=== PATIENT | female | born 1960 | race Caucasian/White ===

== ENCOUNTER 2019-12-24 08:37 | Day surgery (SDC) | payer BC ==
[~2019-12-24 08:37] MED LIST: CEFAZOLIN 2 Gram 2 GM/50 ML BAG IVPB ONE; CELECOXIB 100 MG CAPSULE PO ONE; FAMOTIDINE 20MG TABLET PO ONE; METOCLOPRAMIDE 10 MG TABLET PO ONE; SCOPOLAMINE 1 PATCH TDSY TD ONE; VANCOMYCIN 1GM/200ML PREMIX 1 GM/200 ML PIGGYBACK IVPB ONE
[2019-12-24] MEDS ORDERED: ROPIVACAINE HCL (NAROPIN) /PF 5MG/ML 20ML VIAL IV ONE (08:38)
[2019-12-24] MEDS ORDERED: GLYCOPYRROLATE 0.2 MG/ML ML IV ONE (08:38)
[2019-12-24] MEDS ORDERED: LIDOCAINE 2% MDV (20MG/ML) 20ML VIAL IV ONE (08:38)
[2019-12-24] MEDS ORDERED: DEXAMETHASONE 4 MG/ML 1ML VIAL IVP ONE (08:38)
[2019-12-24] MEDS ORDERED: PROPOFOL 10 MG/ML VIAL IV ONE (08:38)
[2019-12-24] MEDS ORDERED: MIDAZOLAM HCL 2MG/2ML VIAL IV ONE (08:38)
[2019-12-24] MEDS ORDERED: RINGERS SOLUTION,LACTATED 1,000 ML IV ONE ×2 (09:47→12:04)
[2019-12-24 09:53] LABS: ABO GROUP O; ANTIBODY SCREEN NEGATIVE (NEGATIVE); RH TYPE NEGATIVE
[2019-12-24] MEDS ORDERED: BUPIVACAINE 0.5% W/EPI MPF 30 ML VIAL IU ONE (12:03)
[2019-12-24] MEDS ORDERED: TRANEXAMIC ACID 1,000 MG/10 ML ML IV ONE (12:04)
[2019-12-24] MEDS ORDERED: TRANEXAMIC ACID 1,000 MG/10 ML ML IU ONE (12:04)
[2019-12-24] MEDS ORDERED: NALOXONE 0.4 MG/1 ML VIAL IVP PRN (13:10)
[2019-12-24] MEDS ORDERED: ONDANSETRON HCL IV 4 MG/2 ML VIAL IVP PRN (13:10)
[2019-12-24] MEDS ORDERED: HYDROCODONE/APAP 10/325 TABLET PO PRN (13:10)
[2019-12-24] MEDS ORDERED: HYDROMORPHONE HCL 2 MG/ML VIAL IM PRN (13:10)
[2019-12-24] MEDS ORDERED: ACETAMINOPHEN W/ CODEINE 300MG/60MG TABLET PO PRN ×2 (13:10)
[2019-12-24] MEDS ORDERED: KETOROLAC 30 MG/ML VIAL IVP PRN (13:10)
[2019-12-24] MEDS ORDERED: ACETAMINOPHEN 325 MG TAB PO PRN (13:10)
[2019-12-24] MEDS ORDERED: MAGNESIUM HYDROXIDE 30 ML UDC PO PRN (13:10)
[2019-12-24] MEDS ORDERED: BISACODYL 10 MG SUPP RC PRN (13:10)
[2019-12-24] MEDS ORDERED: AL HYDROX/MAG HYDROX 30ML UD PO PRN (13:10)
[2019-12-24] MEDS ORDERED: TRAMADOL HCL 50 MG TABLET PO PRN (13:10)
[2019-12-24] MEDS ORDERED: ZOLPIDEM TARTRATE 5 MG TABLET PO PRN (13:10)
[2019-12-24] MEDS ORDERED: DIPHENHYDRAMINE HCL 25 MG CAPSULE PO PRN (13:10)
[2019-12-24] MEDS: HYDROCODONE/APAP 10/325 TABLET PO PRN ×2 (15:42→21:39)
--- NOTE | 2019-12-24 16:31 | Rehab Evaluation ---
Patient Information - Patient Information Diagnosis: DJD L knee Ordered Treatment: PT Evaluate and Treat Status: Initial Evaluation Surgery: Yes (L TKA) Date of Surgery: 12/24/19 Past Medical/Surgical Hx: PAST MEDICAL/SURGICAL HISTORY Surgery to Affected Area? No Recent Surgery? 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 Hx Seizures Yes: 1998 WITH BRAIN TUMOR PMH - GI Hx Gastrointestinal Disorders No PMH - Hx Genitourinary Disorders No Comment: S/P HYST PMH - Endocrine Hx Endocrine Disorders No PMH - Musculoskeletal Hx Musculoskeletal Disorders Yes Hx Arthritis Yes: KNEES Hx Osteoporosis Yes: OSTEOPENIA PMH - Psych Hx Psychiatric Problems No PMH - Hematology/Oncology Hx Hematology/Oncology Yes Disorders Hx Anemia Yes: TAKES IRON DAILY Hx Cancer Yes: BRAIN, SKIN, BREAST Hx Chemotherapy Yes Hx Radiation Therapy Yes Premorbid Status: Detail (The patient was independent with all mobility prior to surgery.) Social History: Detail (The patient lives with spouse in a one story house with one step at the enterance and no handrails. The bathroom is equipped with a walk in shower, shower bench, hand held shower head, standard height toilet. No grab bars are present in the bathroom. The patient has a front wheeled walker.) Precautions: [place], Fall, Other (WBAT on the L LE.) - Time With Patient Total Time Spent With Patient (Min): 25 Treatment Procedures: Detail (Initial evaluation, low complexity, transfer training.) Subjective Information - Subjective Information Per Patient (The patient had complaints of L knee pain level 5 using 0-10 pain scale.) Objective Data - Mental Status Patient Orientation: Oriented x3 - Visual Perception Appears within normal limits for therapeutic activities - ROM Not within normal limits (The patient's L knee AROM is limited s/p surgery. All other AROM is WNL.) - Strength/Tone Other (The patient's LE strength was not tested s/p surgery however was functional.) - Bed Mobility Independent (The patient required minimal/moderate with Upper body for supine to sit and minimal PA moving L LE. The patient was independent with sit to supine and scooting to edge of bed.) - Transfers Independent (The patient was independent with stand to sit and required minimal PA of 1 with sit to stand from bed. The patient transferred to and from commode with use of standard walker with CG of 1 for safety.) - Balance Balance Sitting: Good Balance Standing: Fair (The patient required support of walker to stand.) - Gait Detail (The patient was unable to bear weight on L LE without L knee buckling when standing with std. walker. The patient is to walk with nursing staff once effects of surgical block have diminished.) Therapy Assessment - Therapy Assessment Detail (The patient required assistance with bed mobility and transfers and was unable to ambulate due to effects of surgical block. The patient is to walk to bathroom this pm with nursing staff. The patient will be seen tomorrow for 1-2 PT sessions for transfer and gait training and instruction in TKA HEP.) Problem List - Problem List Physical Therapy Problem List: Detail (Decreased L knee AROM and L LE strength.) Goals - Goals Physical Therapy Goals: 1) The patient will be independent with bed mobility . 2) The patient will be independent with sit to and from stand transfer. 3) The patient will ambulate with assistive device household distances WBAT on L LE independently. 4) The patient will ambulate on stairs with supervision for safety using proper technique. 5) The patient will be independent with TKA HEP. Plan - Plan Physical Therapy Plan: PT 1-2 visits for bed mobility, transfers, gait training on levels and stairs and instruction in TKA HEP.
--- NOTE | 2019-12-24 16:39 | Rehab Evaluation ---
Patient Information - Patient Information Diagnosis: DJD L knee Ordered Treatment: OT Evaluate and Treat Status: Initial Evaluation Surgery: Yes (L TKA) Date of Surgery: 12/24/19 Past Medical/Surgical Hx: PAST MEDICAL/SURGICAL HISTORY Surgery to Affected Area? No Recent Surgery? 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 Hx Seizures Yes: 1998 WITH BRAIN TUMOR PMH - GI Hx Gastrointestinal Disorders No PMH - Hx Genitourinary Disorders No Comment: S/P HYST PMH - Endocrine Hx Endocrine Disorders No PMH - Musculoskeletal Hx Musculoskeletal Disorders Yes Hx Arthritis Yes: KNEES Hx Osteoporosis Yes: OSTEOPENIA PMH - Psych Hx Psychiatric Problems No PMH - Hematology/Oncology Hx Hematology/Oncology Yes Disorders Hx Anemia Yes: TAKES IRON DAILY Hx Cancer Yes: BRAIN, SKIN, BREAST Hx Chemotherapy Yes Hx Radiation Therapy Yes Premorbid Status: Detail (The patient was independent with all ADLs and functional mobility prior to surgery.) Social History: Detail (The patient lives with spouse in a one story house with one step at the entrance and no handrails. The bathroom is equipped with a walk in shower, shower bench, hand held shower head, and a standard height toilet. No grab bars are present in the bathroom, however the Pt uses a sturdy vanity for support when needed in standing. The patient has a standard walker without wheels and a lift chair.) Precautions: [place], Fall, Other (WBAT on the L LE.) - Time With Patient Total Time Spent With Patient (Min): 25 (1 eval, low complexity) Subjective Information - Subjective Information Per Patient ("I just had a [place] 20 minutes ago, I'm not feeling too bad.") Objective Data - Pain Pain Present: Yes (02/26 L knee) - Mental Status Patient Orientation: Oriented x3 - Visual Perception Appears within normal limits for therapeutic activities - ROM Within normal limits - Strength/Tone Within normal limits - Coordination Appears within normal limits for therapeutic activities - Bed Mobility Independent, Needs Assist (assist to adjust left leg in bed d/t pain) - Transfers Needs Assist (not assessed this date d/t pain, assist for bed mobility) - Sensation Intact - ADL's/IADL's Detail (OT educated Pt and spouse on modified dressing techniques, including compression socks and wear schedule and use of digital recruiter and sock aide and where to obtain equipment if necessary. Educated on car TF techniques, safe walker use/placement during ADLs, and safety w/ kitchen and bathroom tasks post TKA. Pt and spouse verbalize understanding.) Therapy Assessment - Therapy Assessment Detail (Pt and spouse feel confident w/ ADL tasks and safe walker use and modified techniques. Given handout with review of modified dressing, adaptive equipment (discussed where to obtain), and safe walker use. No further IP OT needs identified. PT to address fxl mobility and stairs tmrw.) Patient Education - Patient Education Teaching Topic: Equipment Use, Other (AE for LB dress, modified techniques) Response: Return Demonstration, Verbalize Understanding Teaching Method: Discussion, Demonstration Teaching Recipient: Patient Barriers To Learning: None Problem List - Problem List Occupational Therapy Problem List: Detail (No further IP OT needs identified.) Goals - Goals Occupational Therapy Goals: No further IP OT needs/goals identified. Prognosis - Prognosis Good Plan - Plan Occupational Therapy Plan: No further IP OT needs/goals identified. DC OT services. Thank you for this referral.
[2019-12-24] MEDS: POTASSIUM CHLORIDE/D5-0.9%NACL 20 MEQ/1,000 ML BAG IV SCH (19:09)
[2019-12-24] MEDS: CEFAZOLIN 2 Gram 2 GM/50 ML BAG IVPB SCH (19:09)
[2019-12-24] MEDS: DOCUSATE SODIUM 100 MG CAPSULE PO SCH (21:39)
[2019-12-25] MEDS: HYDROCODONE/APAP 10/325 TABLET PO PRN ×3 (03:09→14:30)
[2019-12-25] MEDS: CEFAZOLIN 2 Gram 2 GM/50 ML BAG IVPB SCH ×2 (03:10→12:37)
[2019-12-25 07:00] LABS: HEMATOCRIT 36.7 % (35.0-47.0); HEMOGLOBIN 11.5 gm/dl (11.6-16.0)
[2019-12-25 07:08] LABS: BLOOD UREA NITROGEN 15 mg/dL (6-20); CREATININE 0.7 mg/dL (0.5-0.9); EST GLOMERULAR FILTRATION RATE > 60 mL/min; GLUCOSE,RANDOM 138 mg/dL (74-109)
[2019-12-25] MEDS: DOCUSATE SODIUM 100 MG CAPSULE PO SCH (09:33)
[2019-12-25] MEDS: POTASSIUM CHLORIDE/D5-0.9%NACL 20 MEQ/1,000 ML BAG IV SCH ×2 (09:45→09:46)
[2019-12-25] MEDS ORDERED: FERROUS SULFATE 325 MG TAB PO SCH (10:00)
[2019-12-25] MEDS ORDERED: HYDROCHLOROTHIAZIDE 12.5 MG CAPSULE PO SCH (10:00)
[2019-12-25] MEDS ORDERED: RIVAROXABAN 10 MG TABLET PO SCH (10:00)
[2019-12-25] MEDS ORDERED: GLIMEPIRIDE 2 MG TABLET PO SCH (10:00)
[2019-12-25] MEDS ORDERED: LISINOPRIL 5 MG TABLET PO SCH (10:00)
[2019-12-25] MEDS ORDERED: CHOLECALCIFEROL 1,000 UNIT TABLET PO SCH (10:00)
[2019-12-25] MEDS ORDERED: ATORVASTATIN 20 MG TABLET PO SCH (10:00)
[2019-12-25] MEDS ORDERED: ASCORBIC ACID 500 MG TAB PO SCH (10:00)
--- NOTE | 2019-12-25 10:22 | Physical Therapy Tx Note ---
Physical Therapy Tx Note - Treatment Note Tolerated: Good Total Time Spent With Patient: 30 Physical Therapy Tx Note: Detail (Pt was sitting in recliner with ice on knee watching television. Pt reports pain at 4/10 at rest. Pt was independent with transfer from chair to standing. Pt ambulated 170' with FWW with contact gaurd assist and verbal cueing for proper walker advancment. Pt did 3 stairs up and down with min verbal cueing for proper gait pattern and contact gaurd assist. Pt required two rest breaks before and after stairs. Returned Pt to room and helped her go to the bathroom. Returned Pt to chair with ice on knee in reclined position and nursing called for pain meds. Reviewed dressing with Pt with verbal understanding. Pt reported pain increased while walking but returned to 4/10 at rest.) Physical Therapy Problem List: Detail (Decreased L knee AROM and L LE strength.) Physical Therapy Goals: 1) The patient will be independent with bed mobility . 2) The patient will be independent with sit to and from stand transfer. 3) The patient will ambulate with assistive device household distances WBAT on L LE independently. 4) The patient will ambulate on stairs with supervision for safety using proper technique. 5) The patient will be independent with TKA HEP. Prognosis: Good Physical Therapy Plan: Pt to be dischaged, Pt has met all PT gaols at this time.
--- NOTE | 2020-01-02 10:51 | Operative Note ---
DATE OF SURGERY: 12/24/2019 PREOPERATIVE DIAGNOSIS: End-stage arthrosis of the left knee. POSTOPERATIVE DIAGNOSIS: End-stage arthrosis of the left knee. OPERATION: Cemented left total knee arthroplasty using [employer] components with a size 5 Oxinium femur, a size 4 stemmed tibia baseplate, an 11 mm lipped highly crosslinked tibial insert, and a 35 mm all-plastic patella. STAFF SURGEON: Kevin Childress MD ANESTHESIA: Spinal. PREPARATION: Chloraprep. INDIVIDUAL CONSIDERATIONS: This lady was morbidly obese with a body mass index approaching 50%. She had a very large and thick soft tissue envelope of nearly 3 inches which made exposure and closure more difficult. PROCEDURE: The patient was taken to the operating room, placed supine on the operating room table. She had a successful induction of a spinal anesthetic. The left lower extremity was prepped and draped in the usual fashion. The patient had a midline approach to the knee. Sharp dissection carried down through skin and subcutaneous tissue. Small veins were coagulated with a Bovie. A medial arthrotomy was performed. The patella was everted and the knee was flexed. The patient had exposed bone experience in the medial compartment and patellofemoral compartment with large osteophytes. There was significant bone loss in medial femoral condyle. Fat pad was resected, ACL was sacrificed, and provisional anterior meniscectomies were performed. The capsule was released from the medial proximal tibia. The initial femoral harbor boat pilot hole was then made freehand. The intramedullary femoral cutting jig was placed. It was cut in 7.0 degrees of valgus and adjusted for rotation and secured with pins for a 10 mm resection. The initial transverse cut was then made. The skin guide was placed in the anterior and posterior harbor boat pilot holes. It was found that a size 5 would be appropriate. I did cut this in 3 degrees of external rotation. The anterior and posterior cuts followed by chamfer cuts were made. Osteophytes removed, and a size 5 trial was placed and found to fit well. The tibia was brought forward, and the remainder of the meniscal remnants removed with a Bovie. The extraarticular tibial cutting jig was placed. It was cut in neutral with a 3-degree AP slope. It was set for a 9 mm resection keyed off the high lateral side and secured with pins. When cutting the tibia, care was taken to preserve the PCL insertion on the tibia. After removing loose bodies and large medial osteophytes, I could fit a size 4 baseplate. The trial was placed and adjusted for rotation and secured with pins. With an 11 mm insert, there was excellent motion and stability. Rotation and alignment were thought to be intact. Femoral harbor boat pilot holes were impacted and the tibial keel stamp was impacted, and these trial components were removed. The patient had a thick patella and roughly 9 mm of bone was removed freehand. I was able to fit a 35 patella, and the 3 harbor boat pilot holes were drilled. The tourniquet was let down briefly to get bleeders posteriorly and then placed back up again. The knee was then thoroughly irrigated out with pulsatile Betadine and saline. Bony surfaces were dried and at the last step with a CarboJet. A size 4 stemmed tibia baseplate was cemented into place followed by impaction of the 11 mm lipped highly crosslinked tibial insert followed by cementing in the size 5 Oxinium femur followed by cementing in the 35 mm patella. The implant surfaces were compressed, excess cement was removed. After the cement had set, there was excellent motion and stability. Ligamentous balance, rotation alignment, and patellofemoral tracking were normal. No lateral release was required. Again final irrigation. Tourniquet was let down. Hemostasis was obtained with a Bovie. The skin, subcu, and periosteum were infiltrated with 30 mL of 0.5% Marcaine with epinephrine. The capsule was then closed with a running #2 quill, subcu was closed with multiple layers of 0 quill, skin was closed with theodora. Then 1 g of tranexamic acid was mixed with 30 mL of saline and injected into the knee through a sterile 18-gauge needle, and a sterile bulky compressive VELMA-type dressing was applied. The patient tolerated the procedure well. Needle and sponge counts were correct. Estimated blood loss was minimal, and she was taken back to recovery in good condition. There were no complications. DYAN
== END 2019-12-25 14:55 | disposition home health service (06) ==
LOC: SUR 08:37 → MEDSURG 14:15 → SUR 12-25 14:55
PROVIDERS: ATTEND Orthopaedic Surgery
DX: M17.12 Unilateral primary osteoarthritis, left knee (principal); I10 Essential (primary) hypertension; C50.919 Malignant neoplasm of unspecified site of unspecified female breast; M85.80 Other specified disorders of bone density and structure, unspecified site; R01.1 Cardiac murmur, unspecified; Z85.841 Personal history of malignant neoplasm of brain; E66.01 Morbid (severe) obesity due to excess calories
CPT/HCPCS: 27447; 01402; 64447; 85018; 85014; 80048; 36416; 82948; 86900; 86901; 86850; C1776; J0690 ×2; J3490 ×2; J2795; J3370; 76942; J3480; J7120